=== PATIENT | female | born 1945 | race Caucasian/White ===

== ENCOUNTER 2022-12-23 15:13 | Inpatient (IN) | payer MEDICAID ==
[~2022-12-23] VITALS: Ht 167.6 cm; Wt 71.7 kg
[2022-12-23] MEDS ORDERED: ONDANSETRON HCL 4MG/2ML INJ IV STA (15:42)
[2022-12-23] MEDS ORDERED: NITROGLYCERIN 0.4MG TABLET SL SL PRN ×2 (15:45→21:30)
[2022-12-23] MEDS ORDERED: ASPIRIN 81MG TABLET PO ONE (15:45)
[2022-12-23] MEDS ORDERED: DILTIAZEM HCL 5MG/ML 5ML VIAL IV ONE (15:45)
[2022-12-23 16:52] LABS: BASOPHILS % 0.9 % (0.0-2.0); EOSINOPHILS % 0.7 % (0.0-5.0); HEMATOCRIT. 47.7 % (36.0-48.0); HEMOGLOBIN. 15.1 g/dL (12.0-16.0); LYMPHOCYTES % 25.4 % (20.0-50.0); MEAN CORPUSCULAR HEMOGLOBIN 23.6 pg (28.0-32.0); MEAN CORPUSCULAR VOLUME 74.4 fL (81.0-99.0); MEAN PLATELET VOLUME 10.3 fl (7.4-10.4); MONOCYTES % 9.9 % (2.0-8.0); NEUTROPHILS % 63.1 % (40.0-76.0); PLATELET 173 x1000/uL (130-400); RED BLOOD CELL COUNT 6.41 mill/uL (4.2-5.4); RED CELL DISTRIBUTION WIDTH 18.6 % (11.6-14.6)
[2022-12-23 17:09] LABS: CHLORIDE 96 mEq/L (98-107)
[2022-12-23] MEDS ORDERED: ENOXAPARIN 80MG/0.8ML SYR SUBCUT ONE (17:45)
[2022-12-23] MEDS ORDERED: DILTIAZEM HCL 90MG TABLET PO ONE (17:45)
[2022-12-23] MEDS ORDERED: FUROSEMIDE 40MG/4ML VIAL IVP ONE (17:45)
[2022-12-23] MEDS ORDERED: DOCUSATE SODIUM 100MG CAPSULE PO PRN (21:30)
[2022-12-23] MEDS ORDERED: ACETAMINOPHEN 325MG TABLET PO PRN (21:30)
[2022-12-23] MEDS ORDERED: IPRATROPIUM/ALBUTEROL 0.5-3(2.5)MG/3ML NEB NEB PRN (21:30)
[2022-12-23] MEDS ORDERED: MAGNESIUM/ALUMINUM HYDROXIDE/SIMETHICONE 30ML UDC PO PRN (21:30)
[2022-12-23] MEDS ORDERED: CLONIDINE 0.1MG TABLET PO PRN (21:30)
[2022-12-23] MEDS ORDERED: GUAIFENESIN 200MG/10ML SUGAR FREE UDC PO PRN (21:30)
[2022-12-23] MEDS ORDERED: ONDANSETRON HCL 4MG/2ML INJ IV PRN (21:30)
[2022-12-23] MEDS ORDERED: IPRATROPIUM BROMIDE (0.02%) 0.5MG/2.5ML NEB HHN PRN (21:45)
[2022-12-23] MEDS ORDERED: ALBUTEROL (0.083%) 2.5MG/3ML NEB HHN PRN (21:45)
[2022-12-23 22:26] LABS: FOLIC ACID (FOLATE) SERUM > 20.00 ng/mL (>5.38); VITAMIN B12 SERUM > 2000.0 pg/mL (211-911)
[2022-12-23 23:47] LABS: INR 1.7; PROTHROMBIN TIME 17.2 sec (9.6-11.0)
[2022-12-23 23:53] LABS: CREATINE KINASE 174 IU/L (26-192); CREATINE KINASE MB FRACTION < 1.0 ng/mL (0.5-3.6)
[2022-12-24 00:01] LABS: ETHANOL BLOOD < 10 mg/dL; HDL CHOLESTEROL 15 mg/dL (40-59); LDL CHOLESTEROL 83 mg/dL (5-100); T4 FREE 1.97 ng/dL (0.76-1.46); TOTAL IRON BINDING CAPACITY 470 ug/dL (250-450)
[2022-12-24] MEDS ORDERED: APIXABAN 2.5 MG TABLET PO SCH (06:00)
[2022-12-24] MEDS: DILTIAZEM HCL 60MG TABLET PO SCH ×4 (06:00→17:21)
[2022-12-24 07:00] LABS: BASOPHILS % 0.3 % (0.0-2.0); EOSINOPHILS % 1.6 % (0.0-5.0); HEMATOCRIT. 40.7 % (36.0-48.0); HEMOGLOBIN. 13.3 g/dL (12.0-16.0); MEAN CORPUSCULAR HEMOGLOBIN 23.9 pg (28.0-32.0); MEAN PLATELET VOLUME 9.7 fl (7.4-10.4); MONOCYTES % 12.8 % (2.0-8.0); NEUTROPHILS % 45.3 % (40.0-76.0); PLATELET 166 x1000/uL (130-400); RED BLOOD CELL COUNT 5.57 mill/uL (4.2-5.4); RED CELL DISTRIBUTION WIDTH 18.7 % (11.6-14.6)
[2022-12-24 07:07] LABS: CHLORIDE 99 mEq/L (98-107)
[2022-12-24] MEDS: ACETAMINOPHEN 325MG TABLET PO PRN (07:10)
[2022-12-24 07:15] LABS: CREATINE KINASE 148 IU/L (26-192); CREATINE KINASE MB FRACTION < 1.0 ng/mL (0.5-3.6); PHOSPHORUS 3.3 mg/dL (2.5-4.9)
[2022-12-24 09:00] VITALS: BP 109/75
[2022-12-24] MEDS ORDERED: ASPIRIN 325MG EC TABLET PO SCH (09:00)
[2022-12-24] MEDS: FAMOTIDINE 20MG/2ML VIAL IV SCH (10:03)
[2022-12-24] MEDS: ASPIRIN 81MG EC TABLET PO SCH (10:03)
[2022-12-24] MEDS ORDERED: FURO20TA4 MT (11:19)
[2022-12-24] MEDS ORDERED: ASPI-986 MT (11:19)
[2022-12-24 12:00] VITALS: BP 109/77
[2022-12-24 16:00] VITALS: BP 102/62
[2022-12-24] MEDS: ENOXAPARIN 80MG/0.8ML SYR SUBCUT SCH (18:10)
[2022-12-24 20:00] VITALS: BP 106/83
[2022-12-25] VITALS: BP 100/69
[2022-12-25 04:00] VITALS: BP 107/70
[2022-12-25] MEDS: DILTIAZEM HCL 60MG TABLET PO SCH ×2 (05:59)
[2022-12-25 08:00] VITALS: BP 106/68
[2022-12-25] MEDS: FAMOTIDINE 20MG/2ML VIAL IV SCH (09:35)
[2022-12-25] MEDS: ASPIRIN 81MG EC TABLET PO SCH (09:36)
[2022-12-25 12:00] VITALS: BP 100/73
[2022-12-25] MEDS: METOPROLOL TARTRATE 25MG TABLET PO SCH ×2 (14:16→20:48)
[2022-12-25] MEDS: SUCRALFATE 1 G/10 ML UDC PO SCH ×3 (14:16→20:41)
[2022-12-25] MEDS ORDERED: AMIODARONE HCL 150 MG in DEXT 5% WATER 100 ML IV NR (15:00)
[2022-12-25 16:00] VITALS: BP 104/68
[2022-12-25] MEDS: ENOXAPARIN 80MG/0.8ML SYR SUBCUT SCH (18:26)
[2022-12-25 20:00] VITALS: BP 108/72
[2022-12-25] MEDS: ACETAMINOPHEN 325MG TABLET PO PRN (20:41)
[2022-12-25] MEDS: AMIODARONE HCL 200 MG TABLET PO SCH (20:42)
[2022-12-25] MEDS ORDERED: POTASSIUM CHLORIDE 20MEQ TABLET SR PO NR (21:45)
[2022-12-26] VITALS: BP 96/61
[2022-12-26 04:00] VITALS: BP 102/68
[2022-12-26] MEDS: SUCRALFATE 1 G/10 ML UDC PO SCH ×4 (06:34→21:58)
[2022-12-26 08:00] VITALS: BP 103/61
[2022-12-26] MEDS: METOPROLOL TARTRATE 25MG TABLET PO SCH ×2 (08:16→21:00)
[2022-12-26] MEDS: AMIODARONE HCL 200 MG TABLET PO SCH ×2 (08:16→21:58)
[2022-12-26] MEDS: FAMOTIDINE 20MG TABLET PO SCH (08:17)
[2022-12-26] MEDS: ASPIRIN 81MG EC TABLET PO SCH (08:18)
[2022-12-26] MEDS: ACETAMINOPHEN 325MG TABLET PO PRN ×2 (08:19→20:00)
[2022-12-26 12:00] VITALS: BP 102/75
[2022-12-26 16:00] VITALS: BP 105/70
[2022-12-26 16:17] LABS: CHLORIDE 99 mEq/L (98-107)
[2022-12-26 16:27] LABS: HEMATOCRIT 43.1 % (36.0-48.0); HEMOGLOBIN 13.6 g/dL (12.0-16.0); MEAN CORPUSCULAR HEMOGLOBIN 23.3 pg (28.0-32.0); MEAN CORPUSCULAR VOLUME 73.7 fL (81.0-99.0); PLATELET 152 x1000/uL (130-400); RED BLOOD CELL COUNT 5.84 mill/uL (4.2-5.4); RED CELL DISTRIBUTION WIDTH 18.6 % (11.6-14.6)
[2022-12-26] MEDS ORDERED: ENOXAPARIN 80MG/0.8ML SYR SUBCUT SCH (18:00)
[2022-12-26] MEDS ORDERED: APIX2.5T MT (19:10)
[2022-12-26] MEDS ORDERED: ASPI-1406 PO (19:10)
[2022-12-26] MEDS ORDERED: METO25TA6 PO (19:10)
[2022-12-26] MEDS ORDERED: FURO-151 MT (19:10)
[2022-12-26] MEDS ORDERED: AMIO100T4 MT (19:10)
[2022-12-26] MEDS ORDERED: FAMO20TA8 PO (19:10)
[2022-12-26 20:00] VITALS: BP 96/72
[2022-12-27] VITALS: BP 110/68
[2022-12-27 04:00] VITALS: BP 99/57
[2022-12-27] MEDS: SUCRALFATE 1 G/10 ML UDC PO SCH (06:16)
[2022-12-27 08:00] VITALS: BP 98/69
[2022-12-27] MEDS: ASPIRIN 81MG EC TABLET PO SCH (08:13)
[2022-12-27] MEDS: FAMOTIDINE 20MG TABLET PO SCH (08:13)
[2022-12-27] MEDS: METOPROLOL TARTRATE 25MG TABLET PO SCH (08:16)
[2022-12-27] MEDS: AMIODARONE HCL 200 MG TABLET PO SCH (08:16)
[2022-12-27 08:48] VITALS: BP 98/69
[2022-12-27] MEDS ORDERED: FUROSEMIDE 40MG TABLET PO SCH (09:00)
[2022-12-27 11:30] VITALS: BP 102/65
== END 2022-12-27 11:35 | disposition home or self-care (01) | DRG 201 ==
LOC: ER 15:13 → 8WST 21:11 → EDBEDREQSVC 21:13 → EDBEDREQTM 21:13 → EDBEDREQ 21:13
PROVIDERS: ADMIT Internal Medicine; ATTEND Internal Medicine
DX: I48.91 Unspecified atrial fibrillation (principal); N17.0 Acute kidney failure with tubular necrosis; I21.A1 Myocardial infarction type 2; E44.0 Moderate protein-calorie malnutrition; I50.43 Acute on chronic combined systolic (congestive) and diastolic (congestive) heart failure; I42.0 Dilated cardiomyopathy; I82.432 Acute embolism and thrombosis of left popliteal vein; I13.0 Hypertensive heart and chronic kidney disease with heart failure and stage 1 through stage 4 chronic kidney disease, or unspecified chronic kidney disease; K80.20 Calculus of gallbladder without cholecystitis without obstruction; N18.9 Chronic kidney disease, unspecified; I25.10 Atherosclerotic heart disease of native coronary artery without angina pectoris; R73.9 Hyperglycemia, unspecified; Z90.5 Acquired absence of kidney; Z68.25 Body mass index [BMI] 25.0-25.9, adult; Z20.822 Contact with and (suspected) exposure to COVID-19
CPT/HCPCS: 36415; 71045; 74176; 76770; 80048; 80053; 80061; 80320; 82550; 82553; 82607; 82746; 83036; 83540; 83550; 83605; 83735; 83880; 84100; 84145; 84439; 84443; 84484; 85025; 85027; 87426; 93005; 93306; 93970; 97162; 97166; 99291; J0282; J1650; J1940; J2405; J3490; J7060; G0480